=== PATIENT | male | born 1995 | race Caucasian/White ===

== ENCOUNTER 2017-11-24 20:21 | Emergency (ER) | payer OTHER ==
--- NOTE | 2017-11-24 21:31 | ER ---
Nurse's Notes [facility] Name: Doug Borden Age: 22 yrs Sex: Male : 1995 Arrival Date: 11/24/2017 Time: 20:23 Bed 6 Private MD: Alexander Wilson E Diagnosis: Anal fissure, unspecified Presentation: 11/24 20:34 Presenting complaint: Patient states: red bloody stools, pain in rectum, x several sr5 weeks. Denies fever. Transition of care: patient was not received from another setting of care. Onset of symptoms is unknown. Care prior to arrival: None. 20:34 Method Of Arrival: Ambulatory sr5 20:34 Acuity: MEE 3 sr5 Triage Assessment: 20:36 General: Appears in no apparent distress. Behavior is calm, cooperative. Pain: sr5 Complains of pain in buttocks Pain currently is 10 out of 10 on a pain scale. GI: Reports rectal bleeding. Historical: - Allergies: 20:36 No Known Allergies; sr5 - Home Meds: 20:36 herbal supplement for hair growth [Active]; sr5 - PMHx: 20:36 Myocarditis; sr5 - PSHx: 20:36 None; sr5 - Immunization history:: Adult Immunizations up to date. - Social history:: Smoking status: Patient/guardian denies using tobacco, never smoked. Screenin:44 Abuse screen: Denies threats or abuse. Denies injuries from another. Nutritional tl1 screening: No deficits noted. Tuberculosis screening: No symptoms or risk factors identified. Fall Risk None identified. Assessment: 20:44 General: Appears in no apparent distress. comfortable, Behavior is calm, cooperative, tl1 appropriate for age. Pain: Complains of pain in anus Pain currently is 1 out of 10 on a pain scale. Quality of pain is described as burning, Aggravated by bowel movement. Neuro: Level of Consciousness is awake, alert, obeys commands, Oriented to person, place, time, situation. Cardiovascular: Denies chest pain. Respiratory: Airway is patent Trachea midline Respiratory effort is even, unlabored. GI: Abdomen is non-distended, Bowel sounds present X 4 quads. Abd is soft and non tender X 4 quads. : No signs and/or symptoms were reported regarding the genitourinary system. :. EENT: No signs and/or symptoms were reported regarding the EENT system. Derm:. 21:46 Reassessment: No changes from previously documented assessment. Patient and/or family tl1 updated on plan of care and expected duration. Pain level reassessed. Patient is alert, oriented x 3, equal unlabored respirations, skin warm/dry/pink. Vital Signs: 20:36 BP 106 / 89; Pulse 75; Resp 16; Temp 98.3; Pulse Ox 100% on R/A; Weight 115.67 kg (R); sr5 Height 5 ft. 10 in. (177.80 cm); Pain 2/10; 21:46 BP 112 / 86; Pulse 77; Resp 16; Temp 98.4; Pulse Ox 100% ; Pain 1/10; tl1 20:36 Body Mass Index 36.59 (115.67 kg, 177.80 cm) sr5 ED Course: 20:23 Patient arrived in ED. am2 20:24 Alexander Wilson MD is Private Physician. am2 20:35 Triage completed. sr5 20:36 Arm band placed on. sr5 20:44 Leonie Dietrich RN is Primary Nurse. tl1 20:44 Sravan Juarez NP is PHCP. pm1 20:45 Patient has correct armband on for positive identification. Placed in gown. Bed in low tl1 position. Call light in reach. 20:46 Shelton Gutierrez MD is Attending Physician. pm1 21:30 Eulogio Garsia MD is Referral Physician. pm1 21:30 Jose Ta MD is Referral Physician. pm1 21:46 Served as a integration project manager during rectal exam. Patient did not have IV access during this tl1 emergency room visit. Administered Medications: No medications were administered Outcome: 21:31 Discharge ordered by . pm1 21:49 Discharged to home ambulatory. tl1 21:49 Condition: stable 21:49 Discharge instructions given to patient, Instructed on discharge instructions, follow up and referral plans. no drinking with medication, no driving heavy equipment, medication usage, Demonstrated understanding of instructions, follow-up care, medications, Prescriptions given X 3. 21:51 Patient left the ED. tl1 Signatures: Leonie Dietrich RN RN tl1 Sravan Juarez NP PLUMBING FOREMAN pm1 Antony Peterson RN RN sr5 Martins, Princess am2 Corrections: (The following items were deleted from the chart) 20:35 20:34 Acuity: MEE 4 sr5 sr5
--- NOTE | 2017-11-24 21:31 | EDPHYS ---
Physician Documentation [facility] Name: Doug Borden Age: 22 yrs Sex: Male : 1995 Arrival Date: 11/24/2017 Time: 20:23 Bed 6 Private MD: Alexander Wilson E ED Physician Shelton Gutierrez HPI: 11/24 22:00 This 22 yrs old Male presents to ER via Ambulatory with complaints of Bloody pm1 Stools. 22:00 The patient presents to the emergency department with bleeding from the rectum/anus, pm1 pain in the rectal area. Onset: The symptoms/episode began/occurred 2 month(s) ago. Context: the patient has no known special context relating to the rectal area complaint(s). Modifying factors: The symptoms are alleviated by nothing, The symptoms are aggravated by bowel movement, sitting position. Associate signs and symptoms: Pertinent negatives: abdominal pain, constipation, diarrhea, dysuria, fever, vomiting. The patient has not experienced similar symptoms in the past. The patient has not recently seen a physician. patient reports small amount of blood present with wiping and on the stool with bowel movement. Patient reports bowel movements are painful. . Historical: - Allergies: 20:36 No Known Allergies; sr5 - Home Meds: 20:36 herbal supplement for hair growth [Active]; sr5 - PMHx: 20:36 Myocarditis; sr5 - PSHx: 20:36 None; sr5 - Immunization history:: Adult Immunizations up to date. - Social history:: Smoking status: Patient/guardian denies using tobacco, never smoked. ROS: 22:00 Constitutional: Negative for fever, chills, and weight loss, Eyes: Negative for injury, pm1 pain, redness, and discharge, ENT: Negative for injury, pain, and discharge, Neck: Negative for injury, pain, and swelling, Cardiovascular: Negative for chest pain, palpitations, and edema, Respiratory: Negative for shortness of breath, cough, wheezing, and pleuritic chest pain. 22:00 Back: Negative for injury and pain, : Negative for injury, bleeding, discharge, and swelling, MS/Extremity: Negative for injury and deformity, Skin: Negative for injury, rash, and discoloration, Neuro: Negative for headache, weakness, numbness, tingling, and seizure. 22:00 Abdomen/GI: Positive for rectal pain, rectal bleeding, Negative for abdominal pain, nausea, vomiting, and diarrhea. Exam: 22:00 Constitutional: This is a well developed, well nourished patient who is awake, alert, pm1 and in no acute distress. Head/Face: Normocephalic, atraumatic. Chest/axilla: Normal chest wall appearance and motion. Nontender with no deformity. No lesions are appreciated. Cardiovascular: Regular rate and rhythm with a normal S1 and S2. No gallops, murmurs, or rubs. Normal PMI, no JVD. No pulse deficits. Respiratory: Lungs have equal breath sounds bilaterally, clear to auscultation and percussion. No rales, rhonchi or wheezes noted. No increased work of breathing, no retractions or nasal flaring. 22:00 Back: No spinal tenderness. No costovertebral tenderness. Full range of motion. Skin: Warm, dry with normal turgor. Normal color with no rashes, no lesions, and no evidence of cellulitis. MS/ Extremity: Pulses equal, no cyanosis. Neurovascular intact. Full, normal range of motion. 22:00 Abdomen/GI: Inspection: abdomen appears normal, Bowel sounds: normal, Palpation: abdomen is soft and non-tender, Rectal exam: rectal tone normal, hemorrhoid(s), are not appreciated, mass, is not appreciated, Leonie RN, Fissure at 12 o'clock. Vital Signs: 20:36 BP 106 / 89; Pulse 75; Resp 16; Temp 98.3; Pulse Ox 100% on R/A; Weight 115.67 kg (R); sr5 Height 5 ft. 10 in. (177.80 cm); Pain 2/10; 21:46 BP 112 / 86; Pulse 77; Resp 16; Temp 98.4; Pulse Ox 100% ; Pain 1/10; tl1 20:36 Body Mass Index 36.59 (115.67 kg, 177.80 cm) sr5 MDM: 20:48 Patient medically screened. pm1 21:29 Data reviewed: vital signs. Data interpreted: Pulse oximetry: on room air is 100 %. pm1 Interpretation: normal. Counseling: I had a detailed discussion with the patient and/or guardian regarding: the historical points, exam findings, and any diagnostic results supporting the discharge/admit diagnosis, the need for outpatient follow up, a general surgeon, a glue machine operator, to return to the emergency department if symptoms worsen or persist or if there are any questions or concerns that arise at home. Administered Medications: No medications were administered Disposition: 23:28 Co-signature as Attending Physician, Shelton Gutierrez MD I agree with the assessment and kdr plan of care. Disposition: 11/24/17 21:31 Discharged to Home. Impression: Anal fissure, unspecified. - Condition is Stable. - Discharge Instructions: Anal Fissure, Adult. - Prescriptions for Topicaine - apply 1 application by TOPICAL route every 4 hours As needed; 1 tube. Colace 100 mg Oral Tablet - take 1 tablet by ORAL route every 12 hours; 14 tablet. Tylenol- Codeine #3 300-30 mg Oral Tablet - take 2 tablets by ORAL route every 6 hours As needed; 20 tablet. - Medication Reconciliation Form, Thank You Letter, Antibiotic Education, Prescription Opioid Use form. - Follow up: Emergency Department; When: As needed; Reason: Worsening of condition. Follow up: Eulogio Garsia MD; When: 2 - 3 days; Reason: Recheck today's complaints, Continuance of care, Re-evaluation by your physician. Follow up: Jose Ta MD; When: 2 - 3 days; Reason: Recheck today's complaints, Continuance of care, Re-evaluation by your physician. - Problem is new. - Symptoms have improved. Signatures: Shelton Gutierrez MD MD [facility] Leonie Dietrich RN RN tl1 Sravan Juarez NP AUTOMOTIVE TIRE WORKER pm1 Antony Peterson RN RN sr5
== END 2017-11-24 21:51 | disposition home or self-care (01) ==
LOC: ER 20:21
DX: K60.2 Anal fissure, unspecified
CPT/HCPCS: 99283

== ENCOUNTER 2018-03-04 20:51 | Emergency (ER) | payer OTHER ==
--- NOTE | 2018-03-04 21:23 | ER ---
Nurse's Notes [facility] Name: Doug Borden Age: 22 yrs Sex: Male : 1995 Arrival Date: 03/04/2018 Time: 20:52 Bed 15 Private MD: Diagnosis: Acute upper respiratory infection, unspecified;Acute sinusitis Presentation: 03/04 20:59 Presenting complaint: Patient states: cough, congestion and pain with cough x 2 days. tl2 Transition of care: patient was not received from another setting of care. Onset of symptoms was March 02, 2018. Risk Assessment: Do you want to hurt yourself or someone else? Patient reports no desire to harm self or others. Initial Sepsis Screen: Does the patient meet any 2 criteria? No. Patient's initial sepsis screen is negative. Does the patient have a suspected source of infection? No. Patient's initial sepsis screen is negative. Care prior to arrival: None. 20:59 Method Of Arrival: Ambulatory tl2 20:59 Acuity: MEE 4 tl2 Triage Assessment: 21:01 General: Appears in no apparent distress. uncomfortable, Behavior is calm, cooperative, tl2 appropriate for age. Pain: Denies pain. Neuro: Level of Consciousness is awake, alert, obeys commands, Oriented to person, place, time, situation. Cardiovascular: Denies chest pain. Respiratory: Reports shortness of breath cough that is hacking, pain with cough Onset: The symptoms/episode began/occurred 2 days ago, the patient has moderate shortness of breath. GI: No signs and/or symptoms were reported involving the gastrointestinal system. : No signs and/or symptoms were reported regarding the genitourinary system. Derm: Skin is pink, warm \T\ dry. Historical: - Allergies: 21:01 No Known Allergies; tl2 - Home Meds: 21:01 herbal supplement for hair growth [Active]; tl2 - PMHx: 21:01 Myocarditis; tl2 - PSHx: 21:01 None; tl2 - Immunization history:: Adult Immunizations up to date. - Social history:: Smoking status: Patient/guardian denies using tobacco, Patient uses Vaping. - Ebola Screening: : No symptoms or risks identified at this time. Screenin:04 Abuse screen: Denies threats or abuse. Nutritional screening: No deficits noted. tl2 Tuberculosis screening: No symptoms or risk factors identified. Fall Risk None identified. Assessment: 21:05 General: see triage assessment. tl2 21:33 Reassessment: Patient appears in no apparent distress at this time. Patient and/or tl2 family updated on plan of care and expected duration. Pain level reassessed. Patient is alert, oriented x 3, equal unlabored respirations, skin warm/dry/pink. pt verbalized understanding of discharge instructions, need for follow up and prescription usage. Vital Signs: 21:01 BP 140 / 87; Pulse 108; Resp 20; Temp 98.9(O); Pulse Ox 99% on R/A; Weight 113.4 kg; tl2 Height 5 ft. 10 in. (177.80 cm); 21:33 BP 134 / 84; Pulse 107; Resp 18; Pulse Ox 99% on R/A; tl2 21:01 Body Mass Index 35.87 (113.40 kg, 177.80 cm) tl2 ED Course: 20:52 Patient arrived in ED. ds1 21:00 Triage completed. tl2 21:01 Arm band placed on right wrist. tl2 21:04 Dimitry Palomo PA is PHCP. jr8 21:04 Nitin Sparks MD is Attending Physician. jr8 21:04 Patient has correct armband on for positive identification. Bed in low position. Call tl2 light in reach. Side rails up X 1. 21:32 Michelle Lau, MICHELLE is Primary Nurse. tl2 21:33 No provider procedures requiring assistance completed. Patient did not have IV access tl2 during this emergency room visit. Administered Medications: No medications were administered Outcome: 21:23 Discharge ordered by . jr8 21:33 Discharged to home ambulatory. tl2 21:33 Condition: stable 21:33 Discharge instructions given to patient, Instructed on discharge instructions, follow up and referral plans. medication usage, Demonstrated understanding of instructions, follow-up care, medications, Prescriptions given X 2. 21:35 Patient left the ED. tl2 Signatures: Key Espinal ds1 Dimitry Palomo PA PA jr8 Michelle Lau RN RN tl2 Corrections: (The following items were deleted from the chart) 21:05 21:04 Respiratory: Airway tl2 tl2
--- NOTE | 2018-03-04 21:23 | EDPHYS ---
Physician Documentation [facility] Name: Doug Borden Age: 22 yrs Sex: Male : 1995 Arrival Date: 03/04/2018 Time: 20:52 Bed 15 Private MD: ED Physician Nitin Sparks HPI: 03/04 21:20 This 22 yrs old Male presents to ER via Ambulatory with complaints of Chest jr8 Congestion, Cough, Shortness Of Breath. 21:20 Nasal congestion, sinus tenderness, cough, and shortness of breath for 2 days. Feeling jr8 worse . Onset: The symptoms/episode began/occurred acutely, 2 day(s) ago. Severity of symptoms: At their worst the symptoms were moderate in the emergency department the symptoms are unchanged. The patient has not experienced similar symptoms in the past. The patient has not recently seen a physician. Historical: - Allergies: 21:01 No Known Allergies; tl2 - Home Meds: 21:01 herbal supplement for hair growth [Active]; tl2 - PMHx: 21:01 Myocarditis; tl2 - PSHx: 21:01 None; tl2 - Immunization history:: Adult Immunizations up to date. - Social history:: Smoking status: Patient/guardian denies using tobacco, Patient uses Vaping. - Ebola Screening: : No symptoms or risks identified at this time. ROS: 21:20 Eyes: Negative for injury, pain, redness, and discharge, Neck: Negative for injury, jr8 pain, and swelling, Cardiovascular: Negative for chest pain, palpitations, and edema, Abdomen/GI: Negative for abdominal pain, nausea, vomiting, diarrhea, and constipation, Back: Negative for injury and pain, MS/Extremity: Negative for injury and deformity, Skin: Negative for injury, rash, and discoloration, Neuro: Negative for headache, weakness, numbness, tingling, and seizure. 21:20 ENT: Positive for nasal discharge, rhinorrhea, sinus congestion, sinus pain. 21:20 Respiratory: Positive for cough, shortness of breath. Exam: 21:20 Eyes: Pupils equal round and reactive to light, extra-ocular motions intact. Lids and jr8 lashes normal. Conjunctiva and sclera are non-icteric and not injected. Cornea within normal limits. Periorbital areas with no swelling, redness, or edema. Neck: Trachea midline, no thyromegaly or masses palpated, and no cervical lymphadenopathy. Supple, full range of motion without nuchal rigidity, or vertebral point tenderness. No Meningismus. Cardiovascular: Regular rate and rhythm with a normal S1 and S2. No gallops, murmurs, or rubs. Normal PMI, no JVD. No pulse deficits. Respiratory: Lungs have equal breath sounds bilaterally, clear to auscultation and percussion. No rales, rhonchi or wheezes noted. No increased work of breathing, no retractions or nasal flaring. Abdomen/GI: Soft, non-tender, with normal bowel sounds. No distension or tympany. No guarding or rebound. No evidence of tenderness throughout. Back: No spinal tenderness. No costovertebral tenderness. Full range of motion. Skin: Warm, dry with normal turgor. Normal color with no rashes, no lesions, and no evidence of cellulitis. MS/ Extremity: Pulses equal, no cyanosis. Neurovascular intact. Full, normal range of motion. Neuro: Awake and alert, GCS 15, oriented to person, place, time, and situation. Cranial nerves II-XII grossly intact. Motor strength 5/5 in all extremities. Sensory grossly intact. Cerebellar exam normal. Normal gait. 21:20 Head/face: Sinus tenderness, that is moderate, is located over the right frontal sinus, left frontal sinus, right ethmoid sinus, left ethmoid sinus, right maxillary sinus and left maxillary sinus. 21:20 ENT: Exam is negative for earache, ear discharge, TM abnormalities, Nose: External nose: no obvious acute abnormality, Nasal septum: is midline, Nasal mucosa: erythematous, moist, Turbinates: are swollen bilaterally, Mouth: Lips: moist, Oral mucosa: pink and intact, moist, Gums: pink, Tongue: is moist, Posterior pharynx: Airway: patent, Tonsils: are normal in appearance, Uvula: midline, swelling, is not appreciated, erythema, is not appreciated. Vital Signs: 21:01 BP 140 / 87; Pulse 108; Resp 20; Temp 98.9(O); Pulse Ox 99% on R/A; Weight 113.4 kg; tl2 Height 5 ft. 10 in. (177.80 cm); 21:33 BP 134 / 84; Pulse 107; Resp 18; Pulse Ox 99% on R/A; tl2 21:01 Body Mass Index 35.87 (113.40 kg, 177.80 cm) tl2 MDM: 21:04 Patient medically screened. jr8 21:22 Data reviewed: vital signs, nurses notes, and as a result, I will discharge patient. jr8 Data interpreted: Pulse oximetry: on room air is 99 %. Interpretation: normal. Counseling: I had a detailed discussion with the patient and/or guardian regarding: the historical points, exam findings, and any diagnostic results supporting the discharge/admit diagnosis, the need for outpatient follow up, a family practitioner, to return to the emergency department if symptoms worsen or persist or if there are any questions or concerns that arise at home. Administered Medications: No medications were administered Disposition: 22:27 Co-signature as Attending Physician, Nitin Sparks MD. josephine Disposition: 03/04/18 21:23 Discharged to Home. Impression: Acute upper respiratory infection, unspecified, Acute sinusitis. - Condition is Stable. - Discharge Instructions: Sinusitis, Adult, Upper Respiratory Infection, Adult. - Prescriptions for Ibuprofen 800 mg Oral Tablet - take 1 tablet by ORAL route every 12 hours As needed take with food; 20 tablet. Zithromax Z- Ori 250 mg Oral Tablet - take 1 tablet by ORAL route as directed for 5 days Day 1 - take two (2) tablets one time. Day 2, 3, 4 , 5 take one (1) tablet once daily.; 6 tablet. - Medication Reconciliation Form, Thank You Letter, Antibiotic Education, Prescription Opioid Use form. - Follow up: Private Physician; When: 5 - 6 days; Reason: Recheck today's complaints, Continuance of care, Re-evaluation by your physician. - Problem is new. - Symptoms have improved. Signatures: Nitin Sparks MD MD pkl Dimitry Palomo PA PA jr8 Michelle Lau RN RN tl2 Corrections: (The following items were deleted from the chart) 21:35 21:23 03/04/2018 21:23 Discharged to Home. Impression: Acute upper respiratory tl2 infection, unspecified; Acute sinusitis. Condition is Stable. Forms are Medication Reconciliation Form, Thank You Letter, Antibiotic Education, Prescription Opioid Use. Follow up: Private Physician; When: 5 - 6 days; Reason: Recheck today's complaints, Continuance of care, Re-evaluation by your physician. Problem is new. Symptoms have improved. jr8
== END 2018-03-04 21:35 | disposition home or self-care (01) ==
LOC: ER 20:51
DX: J06.9 Acute upper respiratory infection, unspecified (principal); J01.90 Acute sinusitis, unspecified
CPT/HCPCS: 99282

== ENCOUNTER 2019-05-06 22:18 | Emergency (ER) | payer OTHER ==
[2019-05-07 00:06] LABS: Absolute Lymphocytes (CBC) 2.3 K/uL (0.7-4.9); Basophils % 0.6 % (0-1.3); Hematocrit 49.5 % (39.6-49.0); Lymphocytes % 20.6 % (15.3-44.8); MPV 9.2 fL (7.6-11.3); RBC Red Blood Cell Count 5.55 M/uL (4.33-5.43)
[2019-05-07 00:18] LABS: Albumin 4.1 g/dL (3.4-5.0); Bilirubin Direct 0.1 mg/dL (0-0.2); Bilirubin Total 0.4 mg/dL (0.2-1.0); Potassium 3.7 mmol/L (3.5-5.1); Protein, Total 8.3 g/dL (6.4-8.2)
--- NOTE | 2019-05-07 01:12 | ER ---
Nurse's Notes [facility] Name: Doug Borden Age: 24 yrs Sex: Male : 1995 Arrival Date: 05/06/2019 Time: 22:20 Bed 18 Private MD: Diagnosis: Nausea Presentation: 05/06 22:33 Presenting complaint: Patient states: Nausea since 0200 this morning. Denies vomiting. aj1 Reports 2 episodes of diarrhea yesterday. Denies fever. Transition of care: patient was not received from another setting of care. Onset of symptoms was May 06, 2019 at 02:00. Risk Assessment: Do you want to hurt yourself or someone else? Patient reports no desire to harm self or others. Initial Sepsis Screen: Does the patient meet any 2 criteria? No. Patient's initial sepsis screen is negative. Does the patient have a suspected source of infection? No. Patient's initial sepsis screen is negative. Care prior to arrival: None. 22:33 Method Of Arrival: Ambulatory aj1 22:33 Acuity: MEE 4 aj1 Triage Assessment: 22:35 General: Appears in no apparent distress. comfortable, Behavior is calm, cooperative, aj1 appropriate for age. Pain: Denies pain. Neuro: Level of Consciousness is awake, alert, obeys commands, Oriented to person, place, time, situation. Cardiovascular: Patient's skin is warm and dry. Respiratory: Airway is patent Respiratory effort is even, unlabored, Respiratory pattern is regular, symmetrical. GI: Reports nausea. Historical: - Allergies: 22:35 No Known Allergies; aj1 - Home Meds: 22:35 None [Active]; aj1 - PMHx: 22:35 Myocarditis; aj1 - PSHx: 22:35 None; aj1 - Immunization history:: Flu vaccine is not up to date. - Social history:: Smoking status: Patient uses tobacco products, smokes one pack cigarettes per day. - Ebola Screening: : Patient denies travel to an Ebola-affected area in the 21 days before illness onset. Screenin:42 Abuse screen: Denies threats or abuse. Denies injuries from another. Nutritional cc3 screening: No deficits noted. Tuberculosis screening: No symptoms or risk factors identified. Fall Risk Ambulatory Aid- None/Bed Rest/Nurse Assist (0 pts). Gait- Normal/Bed Rest/Wheelchair (0 pts) Mental Status- Oriented to own ability (0 pts). Assessment: 23:42 General: Appears in no apparent distress. comfortable, Behavior is calm, cooperative, cc3 appropriate for age. Pain: Complains of pain in abdomen. Neuro: Level of Consciousness is awake, alert, obeys commands, Oriented to person, place, time, situation, Appropriate for age. Cardiovascular: Denies chest pain, Capillary refill < 3 seconds Patient's skin is warm and dry. Respiratory: Airway is patent Respiratory effort is even, unlabored, Respiratory pattern is regular, symmetrical. GI: Abdomen is round non-distended, Bowel sounds present X 4 quads. Abd is soft and non tender X 4 quads. : No signs and/or symptoms were reported regarding the genitourinary system. EENT: No signs and/or symptoms were reported regarding the EENT system. Derm: Skin is intact, is healthy with good turgor, Skin is pink, warm \T\ dry. normal. Musculoskeletal: Circulation, motion, and sensation intact. Range of motion: intact in all extremities. 05/07 00:18 Reassessment: Patient appears in no apparent distress at this time. Patient and/or cc3 family updated on plan of care and expected duration. Pain level reassessed. Patient is alert, oriented x 3, equal unlabored respirations, skin warm/dry/pink. 01:30 Reassessment: Patient appears in no apparent distress at this time. Patient and/or cc3 family updated on plan of care and expected duration. Pain level reassessed. Patient is alert, oriented x 3, equal unlabored respirations, skin warm/dry/pink. PA Page discharged the patient home with prescription given. IV cannula removed and patient left ER vitally stable and ambulatory. NO valuables left in the patient's room. Patient denies pain at this time. Patient states feeling better. Patient states symptoms have improved. Vital Signs: 05/06 22:35 BP 123 / 70; Pulse 89; Resp 16; Temp 97.9; Pulse Ox 99% on R/A; Weight 106.14 kg (R); aj1 Height 5 ft. 10 in. (177.80 cm) (R); Pain 0/10; 23:50 BP 111 / 72; Pulse 86; Resp 16 S; Pulse Ox 97% on R/A; cc3 0907 01:18 BP 118 / 77; Pulse 81; Resp 16 S; Pulse Ox 99% on R/A; cc3 05/06 22:35 Body Mass Index 33.58 (106.14 kg, 177.80 cm) aj1 ED Course: 05/06 22:20 Patient arrived in ED. cl3 22:34 Triage completed. aj1 22:35 Arm band placed on Patient placed in waiting room, Patient notified of wait time. aj1 23:19 Shabbir Lopez PA is PHCP. cp 23:19 Lazaro Rm MD is Attending Physician. cp 23:40 Inserted saline lock: 20 gauge in right antecubital area, using aseptic technique. cc3 Blood collected. inserted by technical marketing consultant Rachel. 23:42 Suzanne Garnica is Primary Nurse. cc3 23:42 Patient has correct armband on for positive identification. Bed in low position. Call cc3 light in reach. Side rails up X 1. Pulse ox on. NIBP on. 05/07 01:30 No provider procedures requiring assistance completed. IV discontinued, intact, cc3 bleeding controlled, No redness/swelling at site. Pressure dressing applied. Administered Medications: No medications were administered Outcome: 01:11 Discharge ordered by MD. cp 01:30 Patient left the ED. cc3 01:30 Discharged to home ambulatory. cc3 01:30 Condition: stable 01:30 Discharge instructions given to patient, Instructed on discharge instructions, follow up and referral plans. medication usage, Demonstrated understanding of instructions, follow-up care, medications, Prescriptions given X 1. Signatures: Abbi Armendariz RN RN aj1 Shabbir Lopez PA PA cp Cordel, Charlene cc3 Joanna Boston cl3
--- NOTE | 2019-05-07 01:13 | EDPHYS ---
Physician Documentation [facility] Name: Doug Borden Age: 24 yrs Sex: Male : 1995 Arrival Date: 05/06/2019 Time: 22:20 Bed 18 Private MD: ED Physician Lazaro Rm HPI: 05/07 00:04 This 24 yrs old Male presents to ER via Ambulatory with complaints of cp Abdominal Pain. 00:04 The patient presents with abdominal pain mid abdomen. Onset: The symptoms/episode cp began/occurred yesterday. Associated signs and symptoms: Pertinent positives: nausea, 2 bowel movements. Severity of pain: in the emergency department the pain has improved. Historical: - Allergies: 05/06 22:35 No Known Allergies; aj1 - Home Meds: 22:35 None [Active]; aj1 - PMHx: 22:35 Myocarditis; aj1 - PSHx: 22:35 None; aj1 - Immunization history:: Flu vaccine is not up to date. - Social history:: Smoking status: Patient uses tobacco products, smokes one pack cigarettes per day. - Ebola Screening: : Patient denies travel to an Ebola-affected area in the 21 days before illness onset. ROS: 05/07 00:10 Constitutional: Negative for body aches, chills, fever, poor PO intake. cp 00:10 Eyes: Negative for injury, pain, redness, and discharge. cp 00:10 ENT: Negative for drainage from ear(s), ear pain, sore throat, difficulty swallowing, difficulty handling secretions. 00:10 Cardiovascular: Negative for chest pain, edema, palpitations. 00:10 Respiratory: Negative for cough, shortness of breath, wheezing. 00:10 Abdomen/GI: Positive for abdominal pain, nausea, Negative for vomiting, diarrhea, constipation, anorexia, black/tarry stool, rectal bleeding. 00:10 Back: Negative for pain at rest, pain with movement, radiated pain. 00:10 : Negative for urinary symptoms, pelvic pain, flank pain, burning with urination. 00:10 Skin: Negative for rash. 00:10 Neuro: Negative for altered mental status, dizziness, headache, loss of consciousness, weakness. 00:10 All other systems are negative. Exam: 00:20 Head/Face: Normocephalic, atraumatic. cp 00:20 Constitutional: The patient appears in no acute distress, alert, awake, comfortable, non-toxic, well developed, well nourished. 00:20 Eyes: Periorbital structures: appear normal, Conjunctiva: normal, no exudate, no cp injection, Sclera: no appreciated abnormality, Lids and lashes: appear normal, bilaterally. 00:20 ENT: External ear(s): are unremarkable, Nose: is normal, Mouth: is normal, Posterior pharynx: is normal, airway is patent, no erythema, no exudate. 00:20 Chest/axilla: Inspection: normal, Palpation: is normal, no crepitus, no tenderness. 00:20 Cardiovascular: Rate: normal, Rhythm: regular. 00:20 Respiratory: the patient does not display signs of respiratory distress, Respirations: normal, no use of accessory muscles, no retractions, no splinting, no tachypnea, labored breathing, is not present, Breath sounds: are clear throughout, no decreased breath sounds, no stridor, no wheezing. 00:20 Abdomen/GI: Inspection: abdomen appears normal, Bowel sounds: active, all quadrants, Palpation: soft, in all quadrants, rebound tenderness, is not appreciated, voluntary guarding, is not appreciated, involuntary guarding, is not appreciated, very mild tenderness mid abdomen. 00:20 Back: pain, is absent, ROM is normal. 00:20 Skin: no rash present. Vital Signs: 05/06 22:35 BP 123 / 70; Pulse 89; Resp 16; Temp 97.9; Pulse Ox 99% on R/A; Weight 106.14 kg (R); aj1 Height 5 ft. 10 in. (177.80 cm) (R); Pain 0/10; 23:50 BP 111 / 72; Pulse 86; Resp 16 S; Pulse Ox 97% on R/A; cc3 05/07 01:18 BP 118 / 77; Pulse 81; Resp 16 S; Pulse Ox 99% on R/A; cc3 05/06 22:35 Body Mass Index 33.58 (106.14 kg, 177.80 cm) aj1 MDM: 05/06 23:21 Patient medically screened. cp 05/07 00:20 Differential diagnosis: appendicitis, cholecystitis, Cholelithiasis, diverticulitis, cp gastritis, non-specific abd pain, pancreatitis, Testicular Torsion, Ureterolithiasis, urinary tract infection. 01:10 Data reviewed: vital signs, nurses notes, lab test result(s). 01:10 Counseling: I had a detailed discussion with the patient and/or guardian regarding: the cp historical points, exam findings, and any diagnostic results supporting the discharge/admit diagnosis, lab results, to return to the emergency department if symptoms worsen or persist or if there are any questions or concerns that arise at home. Special discussion: Based on the patient's Hx, exam, and Dx evaluation, there is no indication for emergent surgery or inpatient Tx. It is understood by the patient/guardian that if the Sx's persist or worsen they need to return immediately for re-evaluation. ED course: VSS. Patient observed resting comfortably. Low suspicion for appendicitis. Will discharge to home for continued monitoring. 05/06 23:20 Order name: Basic Metabolic Panel; Complete Time: 01:08 05/06 23:20 Order name: CBC with Diff; Complete Time: 01:08 05/07 01:08 Interpretation: Normal except: WBC 11.1; RBC 5.55; HCT 49.5. 05/06 23:20 Order name: Creatinine for Radiology; Complete Time: 01:08 05/06 23:20 Order name: Hepatic Function; Complete Time: 01:08 05/07 01:09 Interpretation: Normal except: TP 8.3; GLOB 4.2; A/G 1.0. 05/06 23:20 Order name: Lipase; Complete Time: 01:08 05/06 23:20 Order name: IV Saline Lock; Complete Time: 23:58 05/06 23:20 Order name: Labs collected and sent; Complete Time: 23:58 cp Administered Medications: No medications were administered Disposition: 06:44 Co-signature as Attending Physician, Lazaro Rm MD. Disposition: 05/07/19 01:11 Discharged to Home. Impression: Nausea. - Condition is Stable. - Discharge Instructions: Nausea, Adult, Form - Return To Work. - Prescriptions for Zofran 4 mg Oral Tablet - take 1 tablet by ORAL route every 12 hours As needed; 20 tablet. - Medication Reconciliation Form, Thank You Letter, Antibiotic Education, Prescription Opioid Use, Work release form form. - Follow up: Emergency Department; When: As needed; Reason: Worsening of condition. - Problem is new. - Symptoms have improved. Signatures: Dispatcher [employer] EDAbbi Bustillo RN RN aj1 Shabbir Lopez PA PA cp Starr, Gregory, MD MD gs Cordel, Charlene cc3 Corrections: (The following items were deleted from the chart) 01:30 01:11 05/07/2019 01:11 Discharged to Home. Impression: Nausea. Condition is Stable. cc3 Forms are Medication Reconciliation Form, Thank You Letter, Antibiotic Education, Prescription Opioid Use. Follow up: Emergency Department; When: As needed; Reason: Worsening of condition. Problem is new. Symptoms have improved. cp
[2019-05-07 02:29] VITALS: TEMP 97.9
[2019-05-07 02:31] VITALS: BP 111/72; O2SAT 97
== END 2019-05-07 01:30 | disposition home or self-care (01) ==
LOC: ER 22:18
DX: R11.0 Nausea (principal); F17.210 Nicotine dependence, cigarettes, uncomplicated
CPT/HCPCS: 36415; 80048; 80076; 83690; 85025; 99284

== ENCOUNTER 2021-11-05 05:28 | Emergency (ER) | payer BC, OTHER, SELFPAY ==
--- OUTSIDE RECORDS SUMMARY | 2021-11-05 05:30 | XMS REPORT | Continuity of Care Document ---
:1995 Author Organization [facility] t Address [address] [place] [address] [address]. [address] [place] [address] Care Team Providers Name Role Phone Randall MCKEON Attending Clinician Payers Payer Name Policy Type Policy Number Effective Date Expiration Date [facility] [id number] 2016 PPO 00:00:00 Problems Condition Condition Condition Status Onset Resolution Last Treating Co mments Source Name Details Category Date Date Treatment Clinician Date No known No known Disease Unive rs active active ity of problems problems [facility] Allergies, Adverse Reactions, Alerts Allergy Allergy Status Severity Reaction(s) Onset Inactive Treating Comm ents Source Name Type Date Date Clinician NO KNOWN Drug Active Univers ALLERGIE Class ity of S [facility] Social History Social Habit Start Date Stop Date Quantity Comments Source History of Cigarette Smoker [facility] of tobacco use [facility] Sex Assigned At Universit y of [facility] Exposure to Not sure [facility] SARS-CoV-2 [place] [facility] (event) Branch Alcohol intake 2020-10-17 2020-10-17 Current University of 00:00:00 00:00:00 non-drinker of [facility] alcohol (finding) Branch Smoking Status Start Date Stop Date Source Former smoker 2020-10-17 00:00:00 2020-10-17 [facility] Or[facility] F[facility] Start Stop Current Ordering Indication Dosage Frequency Signature Comments Components Source Medication Medication Date Date Medication? Clinician (SIG) Name Name sod 2016-08 Yes 1{bottl Use 1 Univers chlor-bicar 2-15 e} Bottle in ity of b-squeez 00:00: each [place] bottle 00 nostril 2 Medical (NEILMED (two) Branch SINUS RINSE times COMPLETE) daily. Use pkdv in hot shower 1 hour before bedtime promethazin 2016-08 Yes 5mL Take 5 mL U nivers e-codeine 2-15 by mouth 4 ity of 6.25-10 00:00: (four) [place] mg/5 mL 00 times Medical syrup daily as Branch needed for Cough. Vital Signs Vital Name Observation Time Observation Value Comments Source Systolic blood 2020-10-17 20:51:00 133 mm[Hg] Univer sity of pressure [facility] Diastolic blood 2020-10-17 20:51:00 89 mm[Hg] Unive rsity of [facility] Heart rate 2020-10-17 20:51:00 85 /min [facility] Body temperature 2020-10-17 20:51:00 36.67 Emely [facility] Respiratory rate 2020-10-17 20:51:00 14 /min [facility] Body weight 2020-10-17 20:51:00 117.935 kg [facility] BMI 2020-10-17 20:51:00 39.53 kg/m2 [facility] Oxygen saturation in 2020-10-17 20:51:00 98 /min [facility] Arterial blood by [facility] Pulse oximetry Branch Procedures Procedure Date / Time Performed Performing Clinician Sour e ASSIGNMENT OF BENEFITS 2020-10-17 21:14:25 Doctor Unassigned, No [facility] NOTICE OF PRIVACY 2020-10-17 20:37:07 Doctor Unassigned, No [facility] Encounters Start End Encounter Admission Attending Care Care Encounter Source Date/Time Date/Time Type Type Clinicians Facility Department ID 2021-06-29 Emergency [facility] [id number] Univers 23:49:29 ity of [facility] 2020-10-17 2020-10-17 Emergency Pereira, [facility] [id number] Univers 14:52:00 15:27:00 Emily Jacobs [id number] i ty [facility] [id number] [facility] [id number] [facility] 084 Branch Results This patient has no known results.
[2021-11-05 06:30] LABS: Absolute Lymphocytes (CBC) 2.8 K/uL (0.7-4.9); Hematocrit 45.1 % (39.6-49.0); Lymphocytes % 28.2 % (15.3-44.8); MPV 9.4 fL (7.6-11.3); RBC Red Blood Cell Count 5.16 M/uL (4.33-5.43)
[2021-11-05 06:44] LABS: BUN Blood Urea Nitrogen 10 mg/dL (7-18); Bicarbonate 26 mmol/L (21-32); Glucose Level 118 mg/dL (74-106); Potassium 3.2 mmol/L (3.5-5.1); Sodium Level 139 mmol/L (136-145)
[2021-11-05] MEDS ORDERED: ACETAMINOPHEN 500 MG TAB ONE (07:10)
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
[2021-11-05 08:16] VITALS: O2SAT 100
[2021-11-05 08:17] VITALS: BP 115/78; TEMP 98.5
== END 2021-11-05 08:09 | disposition home or self-care (01) ==
LOC: ER 05:28
DX: M54.2 Cervicalgia (principal); V49.49XA Driver injured in collision with other motor vehicles in traffic accident, initial encounter; F17.210 Nicotine dependence, cigarettes, uncomplicated
CPT/HCPCS: 36415; 70450; 71250; 72125; 80048; 85025; 86850; 86900; 86901; 99285